=== PATIENT | female | born 1985 | race Two or more races ===

== ENCOUNTER 2021-04-10 05:41 | Emergency (ER) | payer BC, MEDICAID ==
[~2021-04-10] VITALS: Ht 160 cm; Wt 86.2 kg
[2021-04-10] MEDS ORDERED: diphenhdrAMINE HCL 50 MG/1 ML VL IV ONE ×2 (05:45→06:45)
[2021-04-10] MEDS ORDERED: ONDANSETRON HCL 4 MG/2 ML VIAL IM ONE (05:45)
[2021-04-10] MEDS ORDERED: methylPREDNISolone SOD SUCC 125 MG/2 ML VL IM ONE (05:45)
[2021-04-10] MEDS ORDERED: SODIUM CHLORIDE 0.9% 1,000 ML IV ONE (06:30)
[2021-04-10] MEDS ORDERED: methylPREDNISolone SOD SUCC 125 MG/2 ML VL IV ONE (06:45)
[2021-04-10] MEDS ORDERED: ONDANSETRON HCL 4 MG/2 ML VIAL IV ONE (06:45)
[2021-04-10 08:25] VITALS: BP 154/99
== END 2021-04-10 08:49 | disposition home or self-care (01) ==
LOC: ER 05:41
DX: T78.40XA Allergy, unspecified, initial encounter (principal); X58.XXXA Exposure to other specified factors, initial encounter
CPT/HCPCS: 96361; 96374; 96375; 99284; J1200; J2405; J2930; J7030